=== PATIENT | male | born 1970 | race Caucasian/White ===

== ENCOUNTER 2024-05-03 13:07 | Emergency (ER) | payer BC, OTHER ==
[~2024-05-03] VITALS: Ht 188 cm; Wt 133.8 kg
[2024-05-03] MEDS ORDERED: LISINOPRIL40 MG PO (13:54)
[2024-05-03] MEDS ORDERED: PIOGLITAZONE HC45 MG PO (13:54)
[2024-05-03] MEDS ORDERED: ANORO ELLIPTA1 EACH INH (13:54)
[2024-05-03] MEDS ORDERED: LIRAGLUTID0.6 MG/0.1 SQ (13:54)
[2024-05-03] MEDS ORDERED: ROSUVASTATIN CA20 MG PO (13:54)
[2024-05-03] MEDS ORDERED: FUROSEMIDE20 MG PO (13:55)
[2024-05-03] MEDS ORDERED: BUPRENORPHIN-N1 EACH SL (13:55)
[2024-05-03] MEDS ORDERED: INSULIN GL100 UNIT/2 (13:55)
[2024-05-03] MEDS ORDERED: predniSONE 20 MG TAB PO ONE (14:45)
[2024-05-03] MEDS ORDERED: ALBUTEROL/IPRATROPIUM 3 ML NEB INH ONE ×2 (14:45→16:15)
[2024-05-03] MEDS ORDERED: ALBUTEROL2.5 MG/3 M INH (16:06)
[2024-05-03] MEDS ORDERED: PREDNISONE20 MG PO (16:06)
[2024-05-03] MEDS ORDERED: ALBUTEROL SULFATE 0.083% 3 ML VIAL INH ONE (16:30)
[2024-05-03 17:04] VITALS: BP 120/69
== END 2024-05-03 17:05 | disposition home or self-care (01) ==
LOC: ED 13:07
DX: J44.1 Chronic obstructive pulmonary disease with (acute) exacerbation (principal); I10 Essential (primary) hypertension; E11.9 Type 2 diabetes mellitus without complications; E66.9 Obesity, unspecified; Z88.5 Allergy status to narcotic agent; Z79.84 Long term (current) use of oral hypoglycemic drugs; Z79.899 Other long term (current) drug therapy
CPT/HCPCS: 71045; 94640; 99285-25; J7512